=== PATIENT | male | born 1945 | race Caucasian/White ===

== ENCOUNTER 2019-01-16 16:09 | Inpatient (IN) ==
[2019-01-16] MEDS ORDERED: ASPIRIN PO ONE (16:33)
[2019-01-16 17:13] LABS: BASO# 0.06 X1000 (0.0-0.2); BASO% 0.4 % (0.0-0.8); EOS# 0.03 X1000 (0.0-0.7); EOS% 0.2 % (0.0-10.0); IMM GRAN# 0.06 X1000 (0.0-0.04); IMM GRAN% 0.4 % (0.0-0.5); LYMPH# 0.82 X1000 (1.2-3.4); LYMPH% 6.1 % (20.5-51.1); MCH 32.2 PG (27-31); MONO# 0.67 X1000 (0.11-0.59); MPV 10.7 FL (7.4-10.4); NEUT% 87.9 % (42.2-75.2); PLT 222 X1000 (130-400); RBC 4.35 XMIL (4.7-6.1); WBC 13.44 X1000 (4.8-10.8)
[2019-01-16] MEDS ORDERED: NS 1,000 ML IV ONE ×3 (17:14→18:25)
[2019-01-16 17:16] LABS: PROTIME 13.7 Seconds (11.0-16.0)
[2019-01-16] MEDS ORDERED: HUMULIN R IV ONE (17:16)
[2019-01-16 17:18] LABS: PTT 27.1 Seconds (22.3-41.8)
--- NOTE | 2019-01-16 17:25 | EKG Report ---
Test Performed on : 01/16/2019 4:33:24 PM Test Reason : chest pain Blood Pressure : / mmHG Vent. Rate : 089 BPM Atrial Rate : 089 BPM P-R Int : 188 ms QRS Dur : 094 ms QT Int : 384 ms P-R-T Axes : 078 049 074 degrees QTc Int : 467 ms Sinus rhythm. with premature atrial complexes. Septal infarct (cited on or before 27-FEB-2018) Abnormal ECG When compared with ECG of 18-AUG-2018 18:53, premature atrial complexes. are now present Unconfirmed Result
[2019-01-16 17:26] LABS: ALBUMIN 4.4 g/dL (3.5-5.0); CALCIUM 9.5 mg/dL (8.8-10.2); CREATININE 1.3 mg/dL (0.7-1.2); POTASSIUM 5.2 mmol/L (3.5-5.1); TOTAL BILIRUBIN 1.2 mg/dL (0.20-1.00); TOTAL PROTEIN 7.4 g/dL (6.3-8.3)
--- NOTE | 2019-01-16 17:31 | PROVIDER DOCUMENTATION ---
This chart was entered by Isabelle Nathan Scribe, acting as scribe for Julianna Queen CRNP. HPI-General Adult - General Chief Complaint: Chest Pain Stated Complaint: CHEAT PAIN, N/V Time Seen by Provider: 01/16/19 17:17 Source: patient, family () Allergies/Adverse Reactions: Patient Allergies Allergy/AdvReac Type Severity Reaction Status Date / Time levofloxacin Allergy RASH Verified 08/18/18 19:12 prednisone Allergy RASH Verified 08/18/18 19:12 Sulfa (Sulfonamide Allergy DIZZINESS Verified 08/18/18 19:12 Antibiotics) Home Medications: Home Medication List Medication Instructions Recorded Confirmed Last Taken Type Levothyroxine [Synthroid] 0.15 mg PO DAILY 11/10/14 08/18/18 03/07/18 08:00 History Insulin Detemir [Levemir] 25 unit SUBQ QHS 08/25/17 08/18/18 03/07/18 19:00 History 25 units Insulin Lispro [Humalog] 6 - 8 unit SQ DIRECTED 08/25/17 08/18/18 03/07/18 19:00 History 7 units Metformin [Glucophage] 500 mg PO DAILY 08/25/17 08/18/18 03/07/18 08:00 History Omeprazole 1 tab PO DAILY 02/27/18 08/18/18 03/07/18 08:00 History Tamsulosin [Flomax] 0.4 mg PO BID 02/27/18 08/18/18 03/07/18 History Albuterol [Albuterol Neb] 2.5 mg INH Q4H PRN PRN #30 neb 02/28/18 08/18/18 03/06/18 Rx Atorvastatin Calcium 40 mg PO QHS 03/07/18 08/18/18 03/07/18 20:00 History Prednisone 20 mg PO BID #10 tablet 08/18/18 Unknown Rx - History of Present Illness -Gen Adult Nature of Presenting Problems: 73 yowm presents to the ed with c/o elevated BGL 452, n/v, bilateral shoulder pain, chest pain, chronic cough and increased thirst. pt sts did not take his insulin last night or this morning. Location of Pain/Injury: reports: chest, generalized (fatigue), other (bilateral shoulders) Quality of Pain: reports: aching Severity: reports: moderate Onset/Duration: reports: this morning Timing: reports: still present, constant Context/Activities at Onset: reports: light activity Modifying Factors: improves with: nothing Associated Symptoms: reports: chest pain, cough, fatigue, muscle aches, rash, vomiting, other (increased thirst and bilateral shoulder pain). denies: back/neck pain, fever/chills, weakness Similar Symptoms Previously?: Yes (prt is diabetic) Recently seen or treated by another doctor?: No Review of Systems - Adult - REVIEW OF SYSTEMS - ADULT Constitutional: reports: see HPI, fatique Eyes: reports: no symptoms reported Ears, Nose, Mouth & Throat: reports: no symptoms reported Cardiovascular: reports: see HPI, chest pain. denies: palpitations, syncope Respiratory: reports: see HPI, chronic cough. denies: shortness of breath, wheezing Gastrointestinal: reports: see HPI, nausea, vomiting Genitourinary: reports: no symptoms reported Musculoskeletal: reports: joint pain (bilatateral shoulder pain). denies: back pain, neck pain Integumentary: reports: no symptoms reported Neurological: reports: no symptoms reported Psychiatric: reports: no symptoms reported Endocrine: reports: see HPI, increased thirst Hematologic/Lymphatic: reports: no symptoms reported Allergic/Immunologic: reports: no symptoms reported All Other Systems: Reviewed and Negative Past History - Adult - PAST MEDICAL HISTORY-ADULT Review of Records: reports: Nursing Assessment Review, Medications Reviewed Major Childhood Illnesses: reports: denies history Cardiovascular: reports: blood clots, HTN, hyperlipidemia Respiratory: reports: asthma, COPD, other (pt reports he was placed on xarelto in the past for a "spot on his lung.") Gastrointestinal: reports: GERD Obstetrical/Gynecological: reports: denies history Genitourinary: reports: other (BPH) Musculoskeletal: reports: denies history Neurological: reports: denies history Psychiatric: reports: denies history Endocrine/Immune: reports: Diabetes, thyroid disorder Diabetes Type: Type 2 Diabetes controlled by:: Insulin Dependent Other Conditions: reports: denies history - PRIOR SURGERIES/PROCEDURES Surgical/Procedure History: reports: none - IMMUNIZATION STATUS Childhood Immunizations: See Nurse Assessment Flu Vaccine: See Nurse Assessment - FAMILY HISTORY Family History: reviewed, not pertinent - SOCIAL HISTORY Smoking: quit less than 1 year (quit yesterday) Substance Use: denies Alcohol Use Frequency: never Living Situation: family Physical Exam-General - PHYSICAL EXAM-ADULT Initial Vital Signs Reviewed: Yes - CONSTITUTIONAL General Appearance: alert, mild distress - EYES Eyes: PERRL/EOMI, pink conjunctivae - HEAD, EARS, NOSE, MOUTH & THROAT HENMT: normocephalic/atraumatic, moist mucous membranes - NECK Neck: full range of motion, supple, normal inspection - RESPIRATORY Respiratory: chest non-tender, lungs clear, normal breath sounds, no pleuratic chest pain, no respiratory distress, no accessory muscle use. negative: crackles, rales, rhonchi, stridor, wheezing, retractions, splinting - CARDIOVASCULAR Cardiovascular: regular rate, rhythm, no gallop, no murmur - GASTROINTESTINAL (ABDOMEN) Abdominal Exam: normal bowel sounds, non tender, soft - LYMPHATIC Lymphatic: no adenopathy - MUSCULOSKELETAL Back Exam: normal inspection Extremity: normal range of motion, non-tender - SKIN Integumentary: normal color, warm/dry - NEUROLOGIC Neurologic: grossly normal - PSYCHIATRIC Psych/Mental Status: normal mood/affect, normal thought content, normal thought process, oriented x 3 Progress - PLAN OF CARE/RESULTS Progress/Plan/Lab Results: Vital Signs - 8 hr 01/16/19 16:27 Temperature 97.2 F L Pulse Rate 97 H Respiratory Rate 18 Blood Pressure 152/51 O2 Sat by Pulse Oximetry 96 Laboratory Results - last 24 hr 01/16/19 01/16/19 01/16/19 16:32 16:39 16:39 WBC 13.44 H RBC 4.35 L Hgb 14.0 Hct 40.0 L MCV 92.0 MCH 32.2 H MCHC 35.0 RDW Std Deviation 15.0 H Plt Count 222 MPV 10.7 H Immature Gran % (Auto) 0.4 Neut % (Auto) 87.9 H Lymph % (Auto) 6.1 L Levy % (Auto) 5.0 Eos % (Auto) 0.2 Baso % (Auto) 0.4 Immature Gran # (Auto) 0.06 H Neut # (Auto) 11.80 H Lymph # (Auto) 0.82 L Levy # (Auto) 0.67 H Eos # (Auto) 0.03 Baso # (Auto) 0.06 PT 13.7 INR 1.00 POC Glucose 452 H D Orders Category Date Time Status Cardiac Monitoring DIRECTED Care 01/16/19 16:35 Active Oxygen Therapy- ED Nursing DIRECTED Care 01/16/19 16:35 Active Saline Loc NOW Care 01/16/19 16:35 Active Saline Loc NOW Care 01/16/19 17:14 Active CHEST-2 VIEWS [RAD] Stat Exams 01/16/19 16:35 Ordered CBC WITH ELECTRONIC DIFF [HEME] Stat Lab 01/16/19 16:39 Completed CK PROFILE [SP CHEM] Stat Lab 01/16/19 16:39 Received COMPREHENSIVE METABOLIC PANEL [CHEM] Stat Lab 01/16/19 16:39 Received PRO B-NATRIURETIC PEPTIDE Stat Lab 01/16/19 16:39 Received PROTIME WITH INR [COAG] Stat Lab 01/16/19 16:39 Results PTT [COAG] Stat Lab 01/16/19 16:39 Results TROPONIN T Stat Lab 01/16/19 16:39 Received 0.9% Sodium Chloride Inj [Ns] 1,000 ml Med 01/16/19 17:14 Active IV 999 mls/hr Aspirin Med 01/16/19 16:33 Discontinued 325 mg PO NOW ONE Insulin Human Regular [Humulin R] Med 01/16/19 17:16 Once 10 unit IV NOW ONE CP/SOB/Palp >45 yrs of Age Stat Oth 01/16/19 16:33 Ordered EKG [EKG] Stat Ther 01/16/19 16:35 Ordered Result Diagrams: 01/16/19 16:39 01/16/19 16:39 - REASSESSMENT Reassessment #1 Time Reassessed: 17:27 Status: unchanged - EKG 1 Time of EKG reading by physician:: 16:33 EKG Read and Signed by:: Karlene Lobato EKG Interpretation (*Must complete 3 of following elements*): Abnormal Rate: 89 Rhythm: sinus rhythm with pac [place]: normal QRS: normal MA Interval: normal ST Wave: normal Comments: septal infarct, age undetermined - XRAY 1 XRAY: Bilateral XRAY Study: Chest Impression: See EMR Report (CHEST-2 VIEWS - 01/16/2019 INDICATION: chest pain COMPARISON: 08/18/2018 FINDINGS: The lungs are normally expanded and clear. Heart size and mediastinal contours are normal. No pneumothorax or pleural effusion. IMPRESSION: Negative exam. Electronically signed by Tim Amador 01/16/2019 5:30 PM 01/16/19 173 Interpreting Physician: Tim Amador MD Dictated Date/Time: 01/16/19 173 cc: Karlene Lobato MD; Linda Vicente MD) - CONSULTS/PCP/HOSPITALIST Notification #1 *Consult/PCP/Hospitalist*: [place] Time Discussed: 19:03 Reason/Comments: DKA Consult Disposition: Admit Departure - Departure Date of Disposition Decision: 01/16/19 Time of Disposition Decision: 19:04 DIAGNOSIS: SIRS (systemic inflammatory response syndrome) DKA (diabetic ketoacidosis) Qualifiers: Diabetes mellitus type: type 2 Diabetes mellitus complication detail: without coma Qualified Code(s): E11.10 - Type 2 diabetes mellitus with ketoacidosis without coma Disposition: ADMITTED INPATIENT 09 Certified Medical Emergency: Emergent Condition: Stable Referrals and Follow-Ups: Linda Vicente MD [Primary Care Provider] - - Critical Care Note This patient required my direct & personal management of CC.: No Attestation - Physician/ PURVI Attestation Patient care was provided by Advanced Practice Provider:: Yes Advanced Practice Provider:: Julianna Queen Advanced Practice Provider documentation review:: The Mid-level provider documen tation, treatment plan and medical decision making was reviewed by the physician who agrees with all treatment and medical decision making by the P. The physician spent face to face time with patient:: No Advanced Practice Provider documentation review:: Supervising physician onsite and consulted in the evaluation and care of this patient. The physician did not have a face to face encounter with the patient. This chart was documented by the indicated scribe, (Isabelle Nathan Scribe) and accurately reflects the services I performed and decisions made by me, Julianna Queen CRNP, as attested by the provider's signature.
[2019-01-16] MEDS ORDERED: HUMULIN R (PARKWAY) ONE (17:43)
[2019-01-16] MEDS ORDERED: ZOFRAN IV ONE (17:54)
[2019-01-16 18:28] LABS: BE -14.1 mmoll (-3.0-3.0); BLOOD TYPE ARTERIAL; HCO3-(ACT) 13.9 mmoll (20.0-26.0); METHB 0.7 % (0.0-1.5); O2(CT) 16.8 mL/dL (15.0-23.0); PCO2(98.6) 24 mmHg (35-45); PO2(98.6) 89 mmHg (60-100); SAMPLE BLOOD; THB 12.5 g/dL (11.5-17.4); pH(98.6) 7.27 (7.35-7.45)
[2019-01-16 18:30] LABS: ALLEN TEST YES; MODALITY ROOM AIR
[2019-01-16] MEDS ORDERED: ROCEPHIN 1 GM in NS 50 ML IV SCH (18:45)
[2019-01-16 19:15] LABS: BILIRUBIN URINE NEGATIVE (NEGATIVE); BLOOD URINE NEGATIVE (NEGATIVE); CLARITY CLEAR (CLEAR); COLOR YELLOW; KETONE URINE 3+(Large) mg/dL (NEGATIVE); LEUKOCYTES URINE NEGATIVE (NEGATIVE); NITRITE URINE NEGATIVE (NEGATIVE); PROTEIN URINE NEGATIVE (NEGATIVE); UROBILINOGEN URINE NORMAL
[2019-01-16 19:18] LABS: URINE WBC <10 /HPF (<10)
[2019-01-16 19:19] LABS: URINE BACTERIA NEGATIVE /HFP; URINE CAST NONE SEEN /LPF; URINE CRYSTAL NONE SEEN /HPF; URINE EPITHELIAL CELLS <10 /HPF (<10); URINE RBC <10 /HPF (<10); URINE SOURCE CLEAN CATCH; URINE YEAST NONE SEEN /HPF
[2019-01-16] MEDS: HUMULIN R (PARKWAY) 100 UNITS in NS 100 ML IV SCH ×3 (19:53→22:00)
[2019-01-16] MEDS: NS 1,000 ML IV SCH (22:00)
[2019-01-16] MEDS ORDERED: 1/2 NS 1,000 ML ONE (22:35)
[2019-01-16] MEDS ORDERED: POTASSIUM CHLORIDE 20% LIQUID PO PRN (22:45)
[2019-01-16] MEDS ORDERED: SODIUM PHOSPHATE 30 MMOL in D5W 250 ML IV PRN (22:45)
[2019-01-16] MEDS ORDERED: ZOFRAN IV PRN (22:45)
[2019-01-16] MEDS ORDERED: MAGNESIUM SULFATE 2 GM/S.W.I. 2 GM/50 ML IVPB IV PRN (22:45)
[2019-01-16] MEDS ORDERED: POTASSIUM CHLORIDE 20 MEQ/SWI 20 MEQ/100 ML IVPB IV PRN (22:45)
[2019-01-16] MEDS ORDERED: D50W SYRINGE IV PRN (22:45)
[2019-01-16] MEDS ORDERED: TYLENOL PO PRN (22:45)
[2019-01-16] MEDS ORDERED: POTASSIUM CHLORIDE 10% LIQUID PO PRN (22:45)
[2019-01-16] MEDS ORDERED: SODIUM BICARBONATE 8.4% 100 MEQ in STERILE WATER INJ. 500 ML IV PRN (22:45)
[2019-01-16] MEDS ORDERED: POTASSIUM CHLORIDE 40 MEQ/SWI 40 MEQ/100 ML IVPB IV PRN (22:45)
[2019-01-16 23:18] LABS: AGAP 15; BUN 30 mg/dL (8-22); CHLORIDE 104 mmol/L (98-107); COSMO 288; CREATININE 1.1 mg/dL (0.7-1.2); ESTIMATED GFR > 60; GLUCOSE 211 mg/dL (70-104); MAGNESIUM 1.6 mg/dL (1.5-2.7); PHOSPHORUS 1.7 mg/dL (2.7-4.5); SODIUM 138 mmol/L (136-145); TCO2 19 mmol/L (25-35)
[2019-01-16] MEDS: 1/2 NS 1,000 ML IV SCH (23:35)
[2019-01-17 01:23] LABS: AGAP 13; BUN 28 mg/dL (8-22); CALCIUM 7.9 mg/dL (8.8-10.2); CHLORIDE 103 mmol/L (98-107); COSMO 282; CREATININE 1.1 mg/dL (0.7-1.2); ESTIMATED GFR > 60; GLUCOSE 174 mg/dL (70-104); PHOSPHORUS 1.8 mg/dL (2.7-4.5); POTASSIUM 4.1 mmol/L (3.5-5.1); SODIUM 136 mmol/L (136-145); TCO2 20 mmol/L (25-35)
[2019-01-17] MEDS ORDERED: D5 1/2 NS 1,000 ML IV SCH (02:00)
[2019-01-17] MEDS: 1/2 NS 1,000 ML IV SCH ×2 (02:41→08:55)
[2019-01-17 06:44] LABS: AGAP 12; BUN 26 mg/dL (8-22); CHLORIDE 104 mmol/L (98-107); COSMO 280; ESTIMATED GFR > 60; GLUCOSE 157 mg/dL (70-104); PHOSPHORUS 2.1 mg/dL (2.7-4.5); POTASSIUM 4.3 mmol/L (3.5-5.1); SODIUM 136 mmol/L (136-145); TCO2 21 mmol/L (25-35)
[2019-01-17] MEDS ORDERED: HUMULIN N INSULIN (PARKWAY) SUBQ ONE (09:12)
[2019-01-17 09:37] LABS: AGAP 10; BUN 25 mg/dL (8-22); CHLORIDE 106 mmol/L (98-107); COSMO 286; ESTIMATED GFR > 60; GLUCOSE 137 mg/dL (70-104); PHOSPHORUS 1.8 mg/dL (2.7-4.5); POTASSIUM 4.1 mmol/L (3.5-5.1); SODIUM 140 mmol/L (136-145); TCO2 24 mmol/L (25-35)
[2019-01-17] MEDS ORDERED: ALBUTEROL NEB INH PRN (10:05)
[2019-01-17] MEDS ORDERED: NS 500 ML IV ONE (10:42)
[2019-01-17] MEDS ORDERED: SODIUM PHOSPHATE 40 MEQ in NS 250 ML IV ONE (10:47)
[2019-01-17] MEDS ORDERED: HUMALOG (PARKWAY) SUBQ SCH (11:00)
[2019-01-17 11:22] LABS: HEMOGLOBIN A1C 9.1 % (4.8-6.0)
--- NOTE | 2019-01-17 12:55 | HISTORY AND PHYSICAL ---
CHIEF COMPLAINT: Nausea, vomiting, and malaise. HISTORY: This is a 73-year-old male with history of diabetes who presents with discomfort and elevated blood sugar. His sugar reportedly was 452. Now, he is an insulin-dependent diabetic. He sees his engineering technician parking in [place], but he just forgot to take his insulin essentially for 2 days. I do not think he was aware of it, and I do not think his was aware of it. He usually keeps his insulin in a cooler in the truck, which also does not seem practical either. He has been having increased thirst. He has had cough which was unrelenting, some chest pain associated with a cough and shoulder pain. He could not tolerate p.o. so he came in for evaluation. He was found to be hyperglycemic with a blood sugar of 452. He was acidotic. He had anion gap metabolic acidosis which was felt to be DKA. He did have lactic acidosis, but did not have a clear source of infection. He was admitted for diabetic ketoacidosis. PAST MEDICAL HISTORY: 1. Type 2 diabetes insulin dependent. 2. Hyperlipidemia. 3. BPH. 4. Hypothyroidism. PAST SURGICAL HISTORY: Denies FAMILY HISTORY: Mother and 2 brothers with diabetes. SOCIAL HISTORY: He does smoke half a pack a day. He has smoked at least a pack a day for 30 years. No alcohol. No drugs. ALLERGIES: Levaquin, prednisone, and sulfa. MEDICATIONS: 1. Atorvastatin 40. 2. Levemir 15. 3. Flomax 0.4 b.i.d. 4. Humalog 6 to 8 units t.i.d. 5. Prilosec 40 daily. 6. Synthroid 150 mcg daily. 7. B12 1000 mcg daily. 8. Vitamin D3 1000 units daily. 9. DuoNeb q.4. REVIEW OF SYSTEMS: No weight loss. No chest pain. Pulmonary as described with cough and chest pain. GI: As described. : No dysuria. No hematuria. Neurologic: No syncope. No paresthesias. Otherwise negative times a 10 point review of systems. PHYSICAL EXAMINATION: VITAL SIGNS: Blood pressure was 93/45 with a previous blood pressure of 86/41, heart rate was 60, respiratory rate 18, and temperature 98.2,98% on room air. GENERAL: A thin male in no acute distress. He is eating. Alert and oriented x4. HEENT: Eye exam shows pupils are equal, round, and reactive to light. Extraocular movements were intact. Sclerae are anicteric. Ears nose and throat exam: He had moist mucous membranes. No lesions noted in oropharynx. CARDIOVASCULAR: Regular rate and rhythm. No murmurs, gallops, or rubs. PULMONARY: Bilateral breath sounds. No wheezing. No rales. No rhonchi. GI: Soft, nontender, and nondistended. Bowel sounds are positive. NEUROLOGIC: Nonfocal. Cranial nerves 2-12 were grossly intact. MUSCULOSKELETAL: 5/5 in all 4 extremities. LYMPHATIC: No peripheral edema. SKIN: No lesions noted. Normal skin turgor. LABORATORY DATA: White count is 13, hemoglobin and hematocrit 14 and 40, platelets 222,000. Coag's normal. A pH 7.27, pCO2 24, PaO2 89. Lactate 6.2. Initial bicarb was 11. Initial gap was 33. Initial blood sugar was 452, and then the repeat was 500, which may have been above 100. Acetone small. ASSESSMENT: A 73-year-old male essentially presenting with DKA, now that has resolved and dehydration. Hypotension. PROBLEM LIST: 1. DKA. We will convert him back to his usual Levemir and continue his medications. Follow closely. Encourage compliance. He cannot miss his insulin for 2 days and expect not to have consequences especially since he sees an engineering technician parking. I encouraged him to get a home health although I get a sense he is probably not going to participate in that. If he is missing doses of medications systematically, we discussed that this could be a potentially lethal situation in relationship to his insulin. 2. Hypotension, likely related to dehydration. We will continue to follow. I am going to check orthostatics and continue hydration. We discussed because he is adamant about trying to go home that if his blood pressure is not stable, he will not be able to. 3. Lactic acidosis. I think that is probably just related to hypoperfusion and throwing up. Repeat level is pending although it was ordered. I just do not have the data back yet. We got one last night that was 1.7. In any case, the patient is stable. Anticipate discharge either later today or tomorrow. TIME SPENT: 32 minute critical care time for IV insulin for DKA. cc: MD Linda Rob MD
[2019-01-17 13:55] VITALS: BP 106/55
[2019-01-17] MEDS ORDERED: FLOMAX PO SCH (21:00)
[2019-01-17] MEDS ORDERED: LEVEMIR INSULIN *HA SUBQ SCH (21:00)
[2019-01-17] MEDS ORDERED: LIPITOR PO SCH (21:00)
[2019-01-18] MEDS ORDERED: SYNTHROID PO SCH (07:00)
[2019-01-18] MEDS ORDERED: PRILOSEC PO SCH (07:30)
[2019-01-18] MEDS ORDERED: VITAMIN B-12 PO SCH (09:00)
[2019-01-18] MEDS ORDERED: VITAMIN D PO SCH (09:00)
--- NOTE | 2019-01-18 13:03 | DISCHARGE SUMMARY ---
ADMISSION DATE: 01/16/2019 DISCHARGE DATE: 01/17/2019 PRIMARY CARE PHYSICIAN: Dr. Linda Vicente. ADMISSION DIAGNOSES: 1. Diabetic ketoacidosis. 2. Hypotension that was likely related to dehydration. 3. Lactic acidosis. DISCHARGE DIAGNOSES: 1. Diabetes type 2 with hyperglycemia, uncontrolled. Diabetic ketoacidosis, now resolved. 2. Hypotension likely related to dehydration, improved. 3. Lactic acidosis, resolved. SUMMARY OF FINDINGS: This is a 73-year-old male who presented with an elevated blood sugar of 452, forgot to take his insulin for 2 days, and is followed by an icu rn in [place]. Keeps his insulin in a cooler in his truck and forgot to take it. Was having increased thirst, had a cough that was unrelenting, some chest pain associated with the cough and shoulder pain. Was unable to tolerate anything p.o. Was found to be hyperglycemic, acidotic and had an anion gap of metabolic acidosis, which was felt to be DKA. Was placed in intensive care on the DKA protocol. He was weaned off of the DKA protocol and started back on his home regimen, but he was noted to have a hemoglobin A1c of 9.1. Blood sugar is down now to 180, and it is felt that he can safely be discharged home. DISCHARGE MEDICATIONS: He will continue his home medications with no changes made at this time. Please see discharge medication list for current discharge medications. FOLLOW-UP: He needs to follow up with his primary care physician in a week, and call their office for an appointment. TIME SPENT ON DISCHARGE: 33 minutes. Dictated by DAVION Morrison for Kali Miranda MD cc: DAVION Morrison MD Bernice Swain, MD
== END 2019-01-17 15:15 | disposition home or self-care (01) | DRG 639 ==
LOC: P.ED 16:09 → P.ICU 21:55
PROVIDERS: ATTEND Internal Medicine
CPT/HCPCS: 71020; 71046; 80048; 80053; 81001; 82009; 82550; 82805; 82948; 83036; 83605; 83735; 83880; 84100; 84484; 85025; 85610; 85730; 87040; 93005; 96361; 96365; 96375; 99285; 99291; A9270; J0696; J1815; J2405; J3475; J3480; J7030; J7040; J7050; XXXXX

== ENCOUNTER 2019-02-01 21:54 | Observation (INO) ==
[2019-02-01] MEDS ORDERED: D5W 1,000 ML IV ONE (23:16)
[2019-02-01 23:47] LABS: BASO# 0.07 X1000 (0.0-0.2); BASO% 1.1 % (0.0-0.8); EOS# 0.41 X1000 (0.0-0.7); EOS% 6.4 % (0.0-10.0); HEMATOCRIT 36.8 % (42.0-52.0); HEMOGLOBIN 12.8 g/dL (14.0-18.0); IMM GRAN# 0.01 X1000 (0.0-0.04); IMM GRAN% 0.2 % (0.0-0.5); LYMPH# 1.69 X1000 (1.2-3.4); LYMPH% 26.4 % (20.5-51.1); MCH 31.9 PG (27-31); MCHC 34.8 g/dL (33-37); MCV 91.8 FL (81-99); MONO% 7.8 % (1.7-9.3); MPV 9.6 FL (7.4-10.4); NEUT# 3.73 X1000 (1.4-6.5); NEUT% 58.1 % (42.2-75.2); PLT 281 X1000 (130-400); RBC 4.01 XMIL (4.7-6.1); RDW 16.1 % (11.5-14.5); WBC 6.41 X1000 (4.8-10.8)
[2019-02-02 00:01] LABS: AGAP 13; BUN 21 mg/dL (8-22); CALCIUM 8.7 mg/dL (8.8-10.2); CHLORIDE 104 mmol/L (98-107); COSMO 283; CREATININE 0.9 mg/dL (0.7-1.2); ESTIMATED GFR > 60; GLUCOSE 75 mg/dL (70-104); MAGNESIUM 1.6 mg/dL (1.5-2.7); POTASSIUM 3.8 mmol/L (3.5-5.1); SODIUM 141 mmol/L (136-145); TCO2 25 mmol/L (25-35)
[2019-02-02] MEDS ORDERED: D5 NS 1,000 ML IV ONE ×2 (00:21→02:37)
[2019-02-02] MEDS ORDERED: D5W 1,000 ML IV ONE (00:43)
[2019-02-02 00:46] LABS: BILIRUBIN URINE NEGATIVE (NEGATIVE); BLOOD URINE NEGATIVE (NEGATIVE); KETONE URINE TRACE mg/dL (NEGATIVE); LEUKOCYTES URINE TRACE (NEGATIVE); NITRITE URINE NEGATIVE (NEGATIVE); PROTEIN URINE TRACE mg/dL (NEGATIVE); SP GRAVITY URINE 1.025; UROBILINOGEN URINE 1 mg/dL
[2019-02-02 00:47] LABS: CLARITY CLEAR (CLEAR); COLOR YELLOW
[2019-02-02 00:51] LABS: URINE EPITHELIAL CELLS <10 /HPF (<10); URINE RBC <10 /HPF (<10)
[2019-02-02 00:52] LABS: URINE BACTERIA 3+ /HFP; URINE SOURCE CLEAN CATCH
[2019-02-02] MEDS ORDERED: TYLENOL PO PRN (02:37)
[2019-02-02] MEDS ORDERED: VENTOLIN HFA INH PRN (09:25)
[2019-02-02] MEDS ORDERED: ARICEPT PO SCH (09:30)
[2019-02-02] MEDS ORDERED: FLOMAX PO SCH (09:30)
[2019-02-02] MEDS ORDERED: PRILOSEC PO SCH (09:30)
--- NOTE | 2019-02-02 09:59 | HISTORY AND PHYSICAL ---
PRIMARY CARE PHYSICIAN: Dr. Vicente. Sees Dr. Sarai Shelton in [place] for his diabetes. CHIEF COMPLAINT: Low blood sugar. HISTORY OF PRESENTING ILLNESS: This is a 73-year-old male who presents to [facility] ER with his stating that he has had a low blood sugar. States that he saw Dr. Sarai Shelton in [place], and on was switched from his Levemir to Tresiba. Took the first dose of Tresiba yesterday morning and noticed that his blood sugar was high in the 500s around lunch, and took Humalog, Tresiba, and Levemir last night. His blood sugar bottomed out into the 40s prior to arrival. He was also noted to have a DKA 2 weeks ago. When he arrived to the emergency room, his blood sugar was 77. The lowest it has dropped with us in the hospital was around midnight and it was 63. He was placed on D5 NS at 125. Blood sugars are now running 120s and 130s, and he was admitted for further evaluation and treatment. PAST MEDICAL HISTORY: 1. Blood clots. 2. Hypertension. 3. Hyperlipidemia. 4. COPD. 5. Asthma. 6. BPH. 7. Diabetes type 1. 8. Hypothyroidism. PAST SURGICAL HISTORY: None. FAMILY HISTORY: Reviewed and noncontributory. SOCIAL HISTORY: He currently lives with family. Is a half pack a day smoker of cigarettes for the past 40 to 50 years, and denied any alcohol or illicit drug use. ALLERGIES: Levaquin, prednisone, and sulfa. HOME MEDICATIONS: 1. ProAir 2 puff inhalation q.4 hours p.r.n. 2. Atorvastatin 40 mg p.o. at bedtime. 3. Donepezil 5 mg p.o. daily. 4. Levemir 15 units subcutaneous at bedtime. We are going to hold that right now. 5. Levothyroxine 150 mcg p.o. daily. 6. Metformin 500 mg p.o. daily will be held. 7. Omeprazole 40 mg p.o. daily. 8. Tamsulosin 0.4 mg p.o. b.i.d. LABORATORY DATA: White blood cell count of 6.41, hemoglobin of 12.8, hematocrit 36.8, platelets 281,000. Sodium of 141, potassium 3.8, chloride 104, CO2 25, BUN of 21, creatinine 0.9, glucose 75 on arrival. The lowest it got again was around midnight and it was 63. Currently, fingerstick blood sugar this a.m. was 138. Urinalysis was negative except for 3+ bacteria and a trace of white blood cells. Chest x-ray is pending. REVIEW OF SYSTEMS: He denied any fever, chills, blurred vision, dizziness, chest pain, coughing, shortness of breath. He denied any abdominal pain, nausea, vomiting, constipation, diarrhea, burning or hurting with urination. PHYSICAL EXAMINATION: VITAL SIGNS: On arrival, he had a temperature of 97.6 degrees, pulse 69, respirations 16, blood pressure 141/74, saturating 95% on room air. GENERAL: This is a 73-year-old male who is sitting on the side of the bed and answers questions appropriately. HEENT: Normocephalic, atraumatic. Normal ENT inspection. Oropharynx and nares are clear. EYES: Pupils are equal, round, and reactive to light and accommodation. Extraocular movements are intact. NECK: Normal inspection. Normal range of motion. LUNGS: Clear to auscultation bilaterally with equal lung expansion and chest wall movement. HEART: Regular rate and rhythm. No murmurs, rubs, or gallops. ABDOMEN: Soft, nontender, nondistended. Bowel sounds are present x4 quadrants. MUSCULOSKELETAL: He has 5/5 strength x4 extremities. NEUROLOGICAL: The cranial nerves 2 through 12 are grossly intact. ASSESSMENT: 1. Diabetes type 1 with hypoglycemia, secondary to insulin dosage and medication change. 2. Hypertension history. 3. Hypothyroidism. 4. Tobacco abuse. PLAN: 1. He was admitted to the medical unit. Was initially placed on D5 normal saline at 125 mL/hour. I am going to stop that at this time, and then in 4 hours will check fingerstick blood sugar. 2. He is on a diabetic diet. 3. Continue his home medications as previously identified. 4. Urine culture is pending. 5. He is on telemetry. 6. Further orders after seen by Attending. Dictated by DAVION Morrison for Josr Dunham MD Addendum: Patient seen and examined by myself. Agree with DAVION note. It reflects my assessment and plan. Patient is being admitted to hospital for hypoglycemia related to a recent changes in his home medications. Will continue with D5NS and when blood sugars are better will discharge him. cc: DAVION Morrison MD Bethany Jackson, MD Dr. Swain MTDD
[2019-02-02 10:09] LABS: HEMOGLOBIN A1C 9.3 % (4.8-6.0)
--- NOTE | 2019-02-02 10:21 | Diag Imaging Result Doc PS360 ---
EXAM: CHEST-PORTABLE INDICATION: weakness TECHNIQUE: One view COMPARISON: 01/16/2019 FINDINGS: The lungs are grossly clear. There is no discrete pleural fluid collection or pneumothorax. The cardiomediastinal silhouette and central vasculature are grossly unremarkable. IMPRESSION: No evidence of acute pathology by plain radiograph. Electronically signed by Nelson Arora 02/02/2019 10:19 AM
[2019-02-02 12:15] VITALS: BP 136/69
--- NOTE | 2019-02-02 20:28 | DISCHARGE SUMMARY ---
ADMISSION DATE: 02/02/2019 DISCHARGE DATE: 02/02/2019 PRIMARY CARE PHYSICIAN: Dr. Linda Vicente. He also sees Dr. Sarai Shelton in [place] for his diabetes. ADMISSION DIAGNOSES: 1. Diabetes type 1 with hypoglycemia secondary to insulin dosage of medication change. 2. History of hypertension. 3. Hypothyroidism. 4. Tobacco abuse. DISCHARGE DIAGNOSES: 1. Diabetes type 1 with hypoglycemia secondary to insulin dosage of medication change resolved with blood sugar now 268. 2. History of hypertension. 3. Hypothyroidism. 4. Tobacco abuse. SUMMARY OF FINDINGS: This is a 73-year-old male who presented with his to the emergency room stating that he had a low blood sugar. States he saw his doctor in [place] Dr. Sarai Shelton on and switched his Levemir to Tresiba, he took the first dose yesterday morning after he noticed that his blood sugar was in the high 500s then he took his Humalog, Tresiba and Levemir that night. His blood sugar dropped into the 40s. He was noted to have DKA about 2 weeks ago. When he arrived to the emergency room his blood sugar was 77. The lowest point it dropped with us was around midnight and it was 63. He was placed on D5 NS at 1:25 and his sugars were running 120 to 130. We stopped the D5 NS and checked his blood sugar 2 hours later and it had gone up to 212 and the highest at noon today was 268. The patient states he was feeling much better and it was felt that he could safely be discharged home. DISCHARGE MEDICATIONS: Will include ProAir 2 puff inhalation q.4 hours p.r.n., atorvastatin 40 mg p.o. at bedtime, donepezil 5 mg p.o. daily, Levemir 15 units subcutaneous at bedtime, levothyroxine 150 mcg p.o. daily, metformin 500 mg p.o. daily, omeprazole 40 mg p.o. daily and tamsulosin 0.4 mg p.o. b.i.d. FOLLOWUP: He needs to follow with his primary care physician in a week and call the office on Monday to schedule the appointment. All discharge instructions were reviewed with the patient and he verbalized understanding. TIME SPENT: 33 minutes. Dictated by DAVION Morrison for Josr Dunham MD Addendum: Patient seen and examined by myself. Agree with SERVICE PROVIDER note. It reflects my assessment and plan. Patient is being discharged in stable condition. Will be seen by his PCP in a week. cc: MD Josr Sandhu MD MTDD
[2019-02-02] MEDS ORDERED: LIPITOR PO SCH (21:00)
[2019-02-03] MEDS ORDERED: SYNTHROID PO SCH ×2 (07:00)
== END 2019-02-02 14:00 | disposition home or self-care (01) ==
LOC: P.ED 21:54 → INTOOBSV 02-02 02:17 → P.MEDSURG 02-02 02:17
PROVIDERS: ATTEND Internal Medicine
CPT/HCPCS: 71010; 71045; 80048; 81001; 82948; 83036; 83735; 84484; 85025; 87088; A9270; J7070; XXXXX